=== PATIENT | female | born 1975 | race Caucasian/White ===

== ENCOUNTER 2018-11-11 04:51 | Observation (INO) ==
--- NOTE | 2018-10-13 13:51 | PAT Medication Instructions ---
Medication Instructions Date of Service October 13, 2018 Home Medications Medication Instructions Recorded buspirone 5 mg tablet 5 mg PO BID #180 tab 09/23/18 alprazolam 0.5 mg tablet 0.5 mg PO QID buspirone 5 mg tablet 5 mg PO BID Vitamin D3 1 dose PO QAM amlodipine 10 mg PO QAM cyanocobalamin (vitamin B-12) Vitamin B-12 1,000 mcg PO QAM folic acid 1 dose PO QAM ibuprofen [Advil] 200 mg PO QID PRN paroxetine HCl 20 mg PO QAM ASK your surgeon for instructions ibuprofen [Advil] 200 mg PO QID PRN DO NOT take the morning of surgery Vitamin D3 1 dose PO QAM cyanocobalamin (vitamin B-12) Vitamin B-12 1,000 mcg PO QAM folic acid 1 dose PO QAM Take morning of surgery With a small sip of water, OTHERWISE NOTHING TO EAT OR DRINK AFTER MIDNIGHT: alprazolam 0.5 mg tablet 0.5 mg PO QID buspirone 5 mg tablet 5 mg PO BID amlodipine 10 mg PO QAM paroxetine HCl 20 mg PO QAM Take evening before surgery alprazolam 0.5 mg tablet 0.5 mg PO QID buspirone 5 mg tablet 5 mg PO BID Other Notes If you have any questions please call us at [phone] or [phone] or [phone] or [phone]
--- NOTE | 2018-10-17 09:10 | Anesthesiology Consultation ---
Date of Service October 17, 2018 Assessment & Plan (1) Encounter for pre-operative examination: Check test AM DOS Chart Review Chart Review: Acceptable Risk for Surgery and Patient seen in Pre Admission Testing Teaching & Discussion Pre-Anesthesia Teaching/Discussion Notes: Instructed NPO after midnight before surgery,except medications with 15 cc of water. Medication instructions provided according to the PAT guidelines. History Surgery Operation Date: 11/11/18 08:45 Proposed Procedures p Robotic Total Laparoscopic Hysterectomy - Luis Hunt MD, FACOG Height/Weight Height: 4 ft 11 in Weight: 59.6 kg Allergies Allergy/AdvReac Type Severity Reaction Status Date / Time adhesive Allergy Redness of Verified 10/12/18 08:21 Skin furosemide [From Lasix] Allergy Swelling Verified 10/12/18 08:04 of Lip/Tongue/Throat Sulfa (Sulfonamide Allergy Swelling Verified 10/12/18 08:04 Antibiotics) of Lip/Tongue/Throat tramadol [From Ultram] Allergy Swelling Verified 10/12/18 08:04 of Lip/Tongue/Throat Medications Home Medications Medication Instructions Recorded Confirmed Last Taken buspirone 5 mg tablet 5 mg PO BID #180 tab 09/23/18 10/12/18 Unknown Vitamin D3 1 dose PO QAM 10/12/18 10/12/18 Unknown amlodipine 10 mg PO QAM 10/12/18 10/12/18 Unknown cyanocobalamin (vitamin B-12) 1,000 mcg PO QAM 10/12/18 10/12/18 Unknown [Vitamin B-12] folic acid 1 dose PO QAM 10/12/18 10/12/18 Unknown ibuprofen [Advil] 200 mg PO QID PRN 10/12/18 10/12/18 Unknown paroxetine HCl 20 mg PO QAM 10/12/18 10/12/18 Unknown alprazolam 0.5 mg tablet 0.5 mg PO QID #120 tab 10/17/18 Unknown Past Medical History Medical History Acid reflux controlled Anxiety Depression Endometriosis Hemangioma left parotid gland History of gastric ulcer 15 years ago Hypertension Osteoporosis Exercise / Class Metabolic Activity II 4-5 Yardwork/Stairs/Walk up hill Past Surgical History Surgical History History of D&C History of esophagogastroduodenoscopy (EGD) History of hip surgery Rt History of laparoscopy x 3 History of tooth extraction Past Anesthesia History Other "Shivering/shaking" post-op right hip surgery (2017). No issues with other surgeries/anesthesia. History of PONV History of PONV and Hx of Motion Sickness Social History Smoking Status: Current every day smoker tobacco type: cigarettes Smoking cigarettes per day: 5 cigarettes/day; total use x 5+ years Do You Dip or Chew Tobacco: No Hx Alcohol Use: Yes Alcohol type: beer alcohol intake frequency: 3 or more drinks per day (5 beers/day currently (per patient, typically 2 beers/day but recent increase in use)) Hx Substance Use: No substance use type: does not use Review of Systems Sinus pressure noted (patient advised to contact PCP/surgeon if persistent/worsening). Reflux controlled with rare breakthrough. Patient denies chest pain, shortness of breath, cough, wheezing, palpitations. Physical Exam Vital Signs VITALS BP 111/75 P 76 TEMP 98.3 SP02 99%RA RESP 18 PHYSICAL Full neck and c-spine range of motion. Full TMJ range of motion. TMD 3 finger breaths Mallampati Score 2 Dentition: missing sides/molars Lungs: clear throughout to auscultation Cardiac: regular rate and rhythm, no murmurs noted Spine: normal Carotid arteries: negative bruit Extremities: no edema Testing Laboratory Results 10/17/18 09:25 10/17/18 09:25 Blood Type B Positive 10/17/18 09:25 Antibody Screen NEGATIVE 10/17/18 09:25 Echocardiogram Date: 01/23/15 LVEF 63%. No significant valvular disease. No RWMA. Stress Test Date: 06/05/14 Type: exercise LVEF 55-59%. 11 METS. Normal hyper-augmentation of LV systolic function to exercise without any segmental wall motion abnormalities. Non-ischemic EKG response to exercise. 94% MPHR.
[2018-10-17 12:06] LABS: Hematocrit (blood only) 41.4 % (37-47); Red Blood Count 4.19 M/uL (4.2-5.4); White Blood Count 6.68 K/uL (4.8-10.8)
[2018-10-17 12:07] LABS: Basophils # (auto) 0.08 K/uL (0-0.2); Basophils % (auto) 1.2 %; Eosinophils # (auto) 0.21 K/uL (0-0.5); Eosinophils % (auto) 3.1 %; Immature Granulocytes # (auto) 0.01 K/uL (0.00-0.02); Immature Granulocytes % (auto) 0.1 %; Lymphocytes # (auto) 1.92 K/uL (1.2-3.4); Lymphocytes % (auto) 28.7 %; Mean Corpuscular Hemoglobin 33.4 pg (25-34); Mean Corpuscular Hgb Conc 33.8 g/dL (32-36); Mean Corpuscular Volume 98.8 fL (80-100); Mean Platelet Volume 9.6 fL (7.4-10.4); Monocytes # (auto) 0.81 K/uL (0.11-0.59); Monocytes % (auto) 12.1 %; Neutrophils # (auto) 3.65 K/uL (1.4-6.5); Neutrophils % (auto) 54.8 %; Platelet Count 370 K/uL (130-400); RDW Coefficient of Variation 13.7 % (11.5-14.5); RDW Standard Deviation 49.4 fL (36.4-46.3)
[2018-10-17 12:15] LABS: BUN Creatinine Ratio 17.8 (10-20); Creatinine Clr Calc Pharmacy 65.7 ml/min; Est GFR (African American) 95.9; Est GFR (Non-African American) 82.8; Potassium 4.5 mmol/L (3.5-5.1)
[2018-11-11] MEDS ORDERED: SCOPOLAMINE 1.5 MG TDSY TD SCH (06:00)
[2018-11-11] MEDS ORDERED: CEFAZOLIN 2000MG 2,000 MG/15 ML SYR IV SCH (06:00)
[2018-11-11] MEDS ORDERED: LACTATED RINGER'S 1,000 ML IV SCH ×3 (06:00→10:34)
[2018-11-11] MEDS ORDERED: MIDAZOLAM HCL 1 MG/ML 2ML VIAL ONE (06:49)
[2018-11-11] MEDS ORDERED: LIDOCAINE HCL 2% 2 ML VIAL/AMP(20MG/ML) INFIL ONE (06:49)
[2018-11-11] MEDS ORDERED: ONDANSETRON INJ 2 MG/ML 2 ML VIAL ONE (06:49)
[2018-11-11] MEDS ORDERED: PROPOFOL IV EMULSION 10 MG/ML 20 ML VIAL IV ONE (06:49)
[2018-11-11] MEDS ORDERED: DEXAMETHASONE SOD INJ 4 MG/ML VIAL ONE (06:49)
[2018-11-11] MEDS ORDERED: NEOSTIGMINE METHYLSULFATE 5 MG/5 ML SYR ONE (06:49)
[2018-11-11] MEDS ORDERED: GLYCOPYRROLATE 0.2 MG/ML VIAL ONE (06:49)
[2018-11-11] MEDS ORDERED: fentaNYL citrate 100 MCG/2 ML VIAL ONE ×2 (06:50)
[2018-11-11] MEDS ORDERED: BUPIVACAINE 0.5 % 5 MG/1 ML MPF 30ML VIAL ONE (07:01)
--- NOTE | 2018-11-11 07:11 | History & Physical Bridge Note ---
Date of Service November 11, 2018 Total laparoscopic hysterectomy, possible bilateral salpingo-oophorectomy, cystoscopy History & Physical Bridge Note I have examined the patient, reviewed the History & Physical and in the interval since the performance of the History & Physical I have noted the following changes of clinical significance: no changes noted
[2018-11-11] MEDS ORDERED: ACETAMINOPHEN 1000 MG/100 ML IV IV ONE (07:58)
[2018-11-11] MEDS ORDERED: CHECK SCOPOLAMINE PATCH PLACEMENT SCH (08:00)
[2018-11-11] MEDS ORDERED: TISSEEL FIBRIN SEALANT 4ML TOP ONE (08:23)
[2018-11-11] MEDS ORDERED: HYDROmorphone INJ 1 MG/ML SYRINGE IV PRN (09:07)
[2018-11-11] MEDS ORDERED: ePHEDrine sulfate 50 MG/ML AMP IV PRN (09:07)
[2018-11-11] MEDS ORDERED: ATROPINE SULFATE 0.1 MG/ML 10ML SYR IV PRN (09:07)
[2018-11-11] MEDS ORDERED: NALOXONE HCL 0.4 MG/1 ML VIAL/CARP IV PRN (09:07)
[2018-11-11] MEDS ORDERED: PROMETHAZINE HCL 12.5 MG in SODIUM CHLORIDE 0.9% 50 ML IV PRN ×2 (09:07→10:34)
[2018-11-11] MEDS ORDERED: LABETALOL HCL IV 5 MG/ML 20ML IV PRN (09:07)
[2018-11-11] MEDS ORDERED: ONDANSETRON INJ 2 MG/ML 2 ML VIAL IV PRN ×2 (09:07→10:34)
[2018-11-11] MEDS ORDERED: FLUMAZENIL 0.1 MG/1 ML 10 ML VIAL IV PRN (09:07)
--- NOTE | 2018-11-11 09:17 | Operative Report ---
Post Operative Report Pre & Post Diagnosis Operation Date: 11/11/18 07:30 Pre-Op Diagnosis: Abnormal Menses, with history of Endometriosis Post-Op Diagnosis: Abnormal Menses, with history of Endometriosis Procedure Operation Date: 11/11/18 07:30 Actual Procedures p Robotic Total Laparoscopic Hysterectomy, Bilateral Salpingectomy, Cystoscopy(Bilateral) - Luis Hunt MD, FACOG Surgeon Luis Hunt MD, FACOG Yarn Bleaching Machine Operator none Estimated Blood Loss 5 Findings Consistent with Post-Op Diagnosis Specimens Uterus cervix bilateral fallopian tubes Description of Procedure Patient given a general anesthetic prepped and draped in dorsal lithotomy position in [facility] bladder drained with a Castañeda catheter V care device inserted into the uterus glove change subumbilical incision made with scalpel using Young technique we did a cutdown entering the peritoneal cavity without difficulty blunt-tipped Young trocar placed balloon inflated to stabilize the port CO2 gas used to insufflate the abdomen Findings upper abdomen normal no sign of visceral organ injury deep Trendelenburg position obtained uterus appeared normal as did the fallopian tubes and uterus and bladder flap there is no visible evidence of endometriosis at this time ureters followed in normal course 2 robotic ports one in the left one in the right side placed under direct visualization a left upper quadrant 11 mm accessory port also placed blunt tipped Robot docked arm #1 was the monopolar renae arm #2 was the bipolar [place] we first remove the fallopian tubes with the monopolar renae and bipolar [place] these were then removed for the accessory port. we identified the ureters on first the left side than the right we then coagulated the blood supply distal to the left ovary with the bipolar [place] cut this with monopolar renae will well away from the left ureter we then coagulated and cut the round ligament skeletonized the bladder flap away sharply skeletonized the vessels coagulated the left uterine vessels with the bipolar [place] and cut these with monopolar renae we were well away from the left ureter exact same process was continued on the right side once both uterine vessel blood supplies were controlled we made anterior colpotomy with the monopolar renae colpotomy then completed uterus was then removed through the vagina and a glove in with the sponge and it was placed in the vagina to maintain pneumoperitoneum at this stage instruments were exchanged our #1 became the Stefano needle front end loader driver arm #2 became the Cobra grasper 12 inch 2 oh 90-day V lock suture was passed the excess report cuff was closed from left to right back right to left ensuring at least 1 cm full- thickness bites of vaginal mucosa suture was cut to there was no tail hemostasis was excellent 4 mL of Tisseel was applied to the pedicles We then performed cystoscopy by removing the Castañeda catheter on visualization there were noticed sutures defects or problems in the bladder there were good strong jets of urine from both left and right ureter opening cystoscope removed and a new Castañeda catheter placed We then re-scrubbed back in and removed all the robotic instruments ports removed incisions injected with 0.5% Marcaine fascia closed the umbilicus and left upper quadrant port with 0 Vicry. 4-0 subcuticular Monocryl closures of the skin sponge and instrument counts were correct I attest to the content of the Intraoperative Record and any orders documented therein. Any exceptions are noted below.
[2018-11-11] MEDS ORDERED: HYDROmorphone INJ 1 MG/ML SYRINGE ONE (09:22)
[2018-11-11] MEDS ORDERED: HYDROmorphone INJ 0.5 MG/0.5 ML SYR ONE (09:23)
--- NOTE | 2018-11-11 10:10 | Anesthesiology Progress Note ---
Date of Service November 11, 2018 Anesthesia Post Procedure Vital Signs Vital Signs: Temp Pulse Pulse Resp BP BP Pulse Ox 11/11/18 09:50 63 16 118/75 97 11/11/18 09:40 66 13 121/66 97 11/11/18 09:30 63 14 118/74 99 11/11/18 09:20 72 16 131/91 100 11/11/18 09:13 36.2 C L 85 16 129/89 99 11/11/18 05:38 36.8 C 70 16 116/78 98 Pain Intensity Abdomen: Pain Intensity: 5 Transfer of Care Handoff Completed per policy Notes Mental Status: alert / awake / arousable Patient Amnestic to Procedure: Yes Nausea / Vomiting: adequately controlled Pain: adequately controlled Airway Patency, RR, SpO2: stable & adequate BP & HR: stable & adequate Hydration State: stable & adequate Anesthetic Complications: no major complications apparent
[2018-11-11] MEDS ORDERED: SIMETHICONE 80 MG CHEW PO PRN (10:34)
[2018-11-11] MEDS ORDERED: IBUPROFEN 200 MG TAB PO PRN (10:34)
[2018-11-11] MEDS ORDERED: KETOROLAC 30 MG/ML VIAL IV PRN (10:34)
[2018-11-11] MEDS ORDERED: MEPERIDINE HCL 50 MG/ML CARP IV PRN (10:34)
[2018-11-11] MEDS ORDERED: IBUPROFEN 600 MG TAB PO PRN (10:34)
[2018-11-11] MEDS ORDERED: MAGNESIUM HYDROXIDE SUSP 30 ML UDC PO PRN (10:34)
[2018-11-11] MEDS ORDERED: ACETAMINOPHEN 325 MG TAB PO PRN (10:34)
[2018-11-11] MEDS ORDERED: OXYCODONE/ACETAMINOPHEN 5mg/325mg TAB PO PRN ×2 (10:34)
[2018-11-11] MEDS ORDERED: ZOLPIDEM TARTRATE 5 MG TAB PO PRN (10:34)
[2018-11-11] MEDS ORDERED: BISACODYL 10 MG SUPP PR PRN (10:34)
[2018-11-11] MEDS ORDERED: ROCURONIUM BROMIDE 10 MG/ML 5 ML VIAL ONE (11:48)
[2018-11-11] MEDS ORDERED: ALPRAZolam 0.5 MG TABLET PO SCH (13:00)
[2018-11-11] MEDS ORDERED: DOCUSATE SODIUM 100 MG CAP PO SCH (21:00)
[2018-11-12] MEDS ORDERED: CHOLECALCIFEROL 1,000 UNITS TAB PO SCH (09:00)
[2018-11-12] MEDS ORDERED: PARoxetine HCl 20 MG TAB PO SCH (09:00)
[2018-11-12] MEDS ORDERED: CYANOCOBALAMIN 500 MCG TABLET (VITAMIN B-12) PO SCH (09:00)
[2018-11-12] MEDS ORDERED: AMLODIPINE BESYLATE 5 MG TAB PO SCH (09:00)
[2018-11-12] MEDS ORDERED: FOLIC ACID 1 MG TAB PO SCH (09:00)
--- NOTE | 2018-11-14 06:56 | Discharge Summary ---
Date of Service November 14, 2018 Had [facility] and was discharged on same day. Admission Exam (Per Admitting) Constitutional WD/WN, vitals as above Discharge Data Procedures Performed Operation Date: 11/11/18 07:30 Actual Procedures p Robotic Total Laparoscopic Hysterectomy, Bilateral Salpingectomy,(Bilateral) - Luis Hunt MD, FACOG s Cystoscopy - Luis Hunt MD, FACOG Hospital Course (1) Pelvic pain: Patient had a total laparoscopic hysterectomy on Wednesday and met criteria to go home on POD#0 At that time she was ambulating well. Tolerating an oral diet. Pain was well controlled. No extremity pain. No bleeding. Voiding well. Discharge instructions were reviewed and prescriptions for pain control were sent and discussed. Patient advised to call with any concerns and follow up discussed including limitations on activity.
== END 2018-11-11 18:50 | disposition home or self-care (01) ==
LOC: 3N 04:51 → ASU 04:51